=== PATIENT | male | born 1965 | race Caucasian/White ===

== ENCOUNTER → 2024-04-21 08:22 | Outpatient (REF) | payer OTHER, SELFPAY | LOC: RCS 08:22 | PROVIDERS: ATTENDING PHYSICIAN Internal Medicine Cardiovascular Disease; FAMILY PHYSICIAN Internal Medicine | DX: I10 Essential (primary) hypertension (principal); R01.1 Cardiac murmur, unspecified | CPT/HCPCS: 93306 ==

== ENCOUNTER 2025-01-18 06:29 | Day surgery (SDC) | payer OTHER, SELFPAY | END 2025-01-18 08:32 | disposition home or self-care (01) | LOC: GI 06:29 | PROVIDERS: ATTENDING PHYSICIAN Internal Medicine | DX: Z12.11 Encounter for screening for malignant neoplasm of colon (principal); D12.0 Benign neoplasm of cecum; D12.5 Benign neoplasm of sigmoid colon; K64.9 Unspecified hemorrhoids | CPT/HCPCS: 45385; 45390; 88305 ==

== ENCOUNTER → 2025-04-01 13:47 | Outpatient (REF) | payer OTHER, SELFPAY | LOC: RCS 13:47 | PROVIDERS: ATTENDING PHYSICIAN Internal Medicine Cardiovascular Disease; FAMILY PHYSICIAN Internal Medicine | DX: R01.1 Cardiac murmur, unspecified (principal); R06.02 Shortness of breath; R07.89 Other chest pain | CPT/HCPCS: 93017; 93350 ==